=== PATIENT | female | born 2000 | race Caucasian/White ===

== ENCOUNTER 2024-08-21 13:23 | Emergency (ER) | payer MEDICAID, OTHER ==
[~2024-08-21] VITALS: Ht 157.5 cm; Wt 54.4 kg
[2024-08-21] MEDS ORDERED: MECLIZINE HCL 25 MG TABLET ONE (14:00)
[2024-08-21] MEDS ORDERED: ACETAMINOPHEN ES 500 MG TABLET ONE (14:00)
[2024-08-21] MEDS ORDERED: IBUPROFEN 600 MG TABLET ONE (14:00)
[2024-08-21] MEDS: IBUPROFEN 600 MG TABLET PO ONE (14:04)
[2024-08-21] MEDS: MECLIZINE HCL 25 MG TABLET PO ONE (14:04)
[2024-08-21] MEDS: ACETAMINOPHEN ES 500 MG TABLET PO ONE (14:05)
[2024-08-21] MEDS ORDERED: MECL-159 PO (14:37)
[2024-08-21] MEDS ORDERED: IBUP-1490 PO (14:37)
[2024-08-21 14:50] VITALS: BP 110/70; TEMP 98.5; O2SAT 98
== END 2024-08-21 14:51 | disposition home or self-care (01) ==
LOC: ER 13:26
DX: S09.8XXA Other specified injuries of head, initial encounter (principal); R42 Dizziness and giddiness; R51.9 Headache, unspecified; W22.09XA Striking against other stationary object, initial encounter; Y93.89 Activity, other specified; Y92.810 Car as the place of occurrence of the external cause; Y99.8 Other external cause status
CPT/HCPCS: 99284; J8597